=== PATIENT | female | born 2000 ===

== ENCOUNTER 2022-08-23 07:28 | Observation (INO) | payer OTHER ==
[~2022-08-23] VITALS: Ht 162.6 cm; Wt 89.5 kg
[2022-08-23] VITALS (12 sets, daily range): BP systolic 99–131; BP diastolic 54–85; PULSE 64–123; TEMP 97.6–98.3
--- NOTE | 2022-08-23 08:05 | NUR ---
arrived on [facility] per stretcher, assisted off stretcher and ambulated to bed, provided goqn and inatructed on use of call light
--- NOTE | 2022-08-23 09:00 | NUR ---
ANA Baker notified of patient's admission
--- NOTE | 2022-08-23 10:45 | NUR ---
ANA Baker in to see patient
--- NOTE | 2022-08-23 12:00 | NUR ---
resting quietly, and son at bedside
--- NOTE | 2022-08-23 14:15 | NUR ---
resting comfortably, informed she will be going to surgery around [id number]
--- NOTE | 2022-08-23 14:45 | NUR ---
to surgery per bed, report given to GURU Humphrey
--- NOTE | 2022-08-23 15:41 | NUR ---
remains in surgery
--- NOTE | 2022-08-23 16:15 | NUR ---
returned from surgery per bed, awake and alert but very sleepy, assisted up to bathroom and voided red tinged urine, attempted to collect urine but did not make it into collection container, back to bed, given sips of water, now will rest
--- NOTE | 2022-08-23 16:40 | NUR ---
up to bathroom and c/o left sided pain, medicated with scheduled toradol, then assisted back to bed, instructed on ordering something to eat, verbalizes understanding
--- NOTE | 2022-08-23 17:00 | NUR ---
sitting up i bed eating a salad
--- NOTE | 2022-08-23 17:48 | NUR ---
up to bathroom and voids, states has pain from the stent when voiding, had salad and tolerated well, IV fluids stopped
--- NOTE | 2022-08-23 18:46 | NUR ---
bedside shift report given to GURU Hess
[2022-08-24 03:54] VITALS: BP 132/76; PULSE 72; TEMP 98.9
--- NOTE | 2022-08-24 05:46 | NUR ---
pt c/o burning pain with urination, percocet given x2 tonight, taking po well, no N/V. INT to [facility] patent/secure. up ad christopher in room.
[2022-08-24 07:23] VITALS: BP 105/58; PULSE 56; TEMP 98.4
--- NOTE | 2022-08-24 09:03 | NUR ---
PT RESTING IN BED DENIES NEEDS AT THIS TIME. PLAN ON DISCAHRGE LATER TODAY. PT A/O X4.
[2022-08-24] MEDS ORDERED: OMNICEF 300MG300 MG PO ×2 (09:54→12:16)
[2022-08-24] MEDS ORDERED: FLOMAX 0.40.4 MG/CAP PO ×2 (09:55→12:16)
--- NOTE | 2022-08-24 13:14 | NUR ---
Initial visit: Pt was sitting on her couch and ready to be discharged. by her side. Pt has no needs right now. Enamel Dipper will follow up as needed
--- NOTE | 2022-08-24 13:42 | NUR ---
DISCHARGE INSTRUCTIONS REVIWED WITH PT AND . QUESTIONS ANSWERED. PT LEFT UNIT AMBULATORY.
== END 2022-08-24 13:43 | disposition home or self-care (01) ==
LOC: MEDICAL 07:28 → SURG 07:30
PROVIDERS: ADMIT Urology
DX: N20.1 Calculus of ureter (principal)
CPT/HCPCS: C1769; C2617; G0378; G0379; J0690; J0696; J1100; J1885; J2405; J2704; J3010; J7030